=== PATIENT | female | born 1960 | race Asian ===

== ENCOUNTER → 2018-06-23 | Day surgery (SDC) | payer OTHER ==
--- NOTE | 2018-06-24 17:49 | PATH ---
Cytology Non-Gynecological Report Patient Name: ASAD AKINS [facility]. Rec. #: [id number] /Age/Gender: 1960 (Age: 57) / F Account: [id number] Location: RADIOLOGY INTER Taken: 06/23/2018 Received: 06/23/2018 Reported: 06/24/2018 Physicians: Navneet Black M.D. Specimen(s) Received LEFT LOBE NODULE Clinical History Left lobe nodule Final Diagnosis THYROID, LEFT LOBE NODULE, FINE NEEDLE ASPIRATION: SATISFACTORY FOR EVALUATION. [place] III: ATYPIA OF UNDETERMINED SIGNIFICANCE. HYPOCELLULAR MATERIAL SHOWING PREDOMINANTLY HURTHLE CELLS ADMIXED WITH THIN COLLOID. Comment: This may represent a benign nodule with Hurthle cell metaplasia. However a Hurthle cell neoplasm cannot be entirely excluded. Clinical correlation is advised. Electronically Signed Tj Mcelroy M.D. Gross Description Received are eight direct smears, four of which are air-dried and Diff-Quik stained, and four of which are alcohol fixed and Pap stained. Also received is 20 ml of bloody formalin from which one cellblock is prepared.
== END | disposition home or self-care (01) ==
LOC: JRADIR 08:55
PROVIDERS: ATTEND Internal Medicine
PROC: 0G9K3ZX Drainage of Thyroid Gland, Percutaneous Approach, Diagnostic (ICD-10-PCS; principal; 2018-06-23)
DX: E04.1 Nontoxic single thyroid nodule (principal)
CPT/HCPCS: 76942; 88173; 88305-TC